=== PATIENT | male | born 1990 | race Caucasian/White ===

== ENCOUNTER 2019-11-30 13:09 | Observation (INO) | payer OTHER ==
[~2019-11-30] VITALS: Ht 182.9 cm; Wt 113.8 kg
--- NOTE | 2019-11-30 20:27 | EKG ---
[facility] [address] [facility] [place] [address] Signed Sinus tachycardia Right atrial enlargement Rightward axis Borderline ECG Multifocal atrial tachycardia No previous ECGs available Confirmed by EVERETT CAMPOVERDE MD ([id number]) on 11/30/2019 8:27:16 PM Electronically Signed By: EVERETT CAMPOVERDE MD 11/30/192026 PATIENT NAME: BOWEN PERSAUD IMELDA Electrocardiogram DATE OF : 86 PHYSICIAN: EVERETT CAMPOVERDE MD REPORT #: [id number] REPORT IS CONFIDENTIAL AND NOT TO BE RELEASED WITHOUT AUTHORIZATION
--- NOTE | 2019-12-02 10:56 | EKG ---
[facility] [address] [facility] [place], [place] [address] Signed Sinus rhythm with marked sinus arrhythmia Possible Left atrial enlargement T wave abnormality, consider anterior ischemia Prolonged QT Abnormal ECG No previous ECGs available Confirmed by DANY MURRAY MD ([id number]) on 12/02/2019 10:56:39 AM Electronically Signed By: DANY MURRAY MD 12/02/19 1056 PATIENT NAME: CORIBOWEN Electrocardiogram DATE OF : 86 PHYSICIAN: DANY MURRAY MD REPORT #: [id number] REPORT IS CONFIDENTIAL AND NOT TO BE RELEASED WITHOUT AUTHORIZATION
--- NOTE | 2019-12-02 10:57 | EKG ---
[facility] [address] [facility] [place] [address] Signed Normal sinus rhythm Rightward axis Nonspecific ST and T wave abnormality Abnormal ECG Confirmed by DANY MURRAY MD ([id number]) on 12/02/2019 10:57:24 AM Electronically Signed By: DANY MURRAY MD 12/02/19 1057 PATIENT NAME: BOWEN PERSAUD Electrocardiogram DATE OF : [birth year] PHYSICIAN: DANY MURRAY MD REPORT #: [id number] REPORT IS CONFIDENTIAL AND NOT TO BE RELEASED WITHOUT AUTHORIZATION
[2019-12-02] MEDS ORDERED: CARDIZEM CD120 MG PO (14:49)
[2019-12-02] MEDS ORDERED: FLECAINIDE ACE100 MG PO (14:50)
== END 2019-12-02 16:18 | disposition home or self-care (01) ==
LOC: ED 13:09 → CCU 13:10
PROVIDERS: ADMIT Internal Medicine
DX: I47.1 Supraventricular tachycardia (principal); J45.20 Mild intermittent asthma, uncomplicated
CPT/HCPCS: 36415; 71046; 80048; 80053; 83735; 83880; 84443; 84484; 85025; 85379; 93005; 93010; 93306; 94640; 96361; 96365; 96366; 96374; 96375; 96376; 99285-25; G0378; J0153; J1940; J7030

== ENCOUNTER 2025-03-05 12:24 | Emergency (ER) | payer OTHER ==
[~2025-03-05] VITALS: Ht 182.9 cm; Wt 125.0 kg
[~2025-03-05 12:24] MED LIST: ACETAMINOPHEN500 MG PO; CARDIZEM CD120 MG PO; FLECAINIDE ACE100 MG PO; IBUPROFEN600 MG PO; MONTELUKAST SOD10 MG PO; OXYCODON-ACETA1 EAC2 PO; VENTOLIN HFA18 GM INH
[2025-03-05] MEDS ORDERED: CARTIA XT120 MG PO (12:42)
[2025-03-05] MEDS ORDERED: SODIUM CHLORIDE 0.9% 1,000 ML IV PRN (12:45)
[2025-03-05 12:49] LABS: BASOPHILS 0.9 % (0.2-1.2); EOSINOPHILS 6.4 % (0.8-7.0); LYMPHOCYTES 25.0 % (21.8-53.1); MCH 30.3 PG (25.7-32.2); MCHC 34.6 g/dL (32.3-36.5); MCV 87.6 fL (79.0-92.2); MONOCYTES 6.6 % (5.3-12.2); NEUTROPHILS 60.8 % (34.0-67.9); RBC 5.25 M/uL (4.63-6.08)
[2025-03-05 13:04] LABS: ALT (SGPT) 51.0 U/L (14-59); AST (SGOT) 23.0 U/L (15-37); GLOMERULAR FILTRATION RATE,EST 88.0 mL/min (>60); PROTEIN, TOTAL 7.6 g/dL (6.4-8.2); UREA NITROGEN 12.0 mg/dL (7-18)
[2025-03-05 15:14] VITALS: BP 133/83
--- NOTE | 2025-03-06 10:53 | EKG ---
[facility] [address] [facility] [place] [address] Signed Sinus tachycardia Nonspecific intraventricular conduction delay Borderline ECG When compared with ECG of 02-JUL-2021 09:53, No significant change was found Confirmed by Jhonatan Mcdonald DO ([id number]) on 03/06/2025 10:52:44 AM Electronically Signed By: JHONATAN MCDONALD DO 03/06/25 1053 PATIENT NAME: BOWEN PERSAUD Electrocardiogram DATE OF : 86 PHYSICIAN: JHONATAN MCDONALD DO REPORT #: [id number] REPORT IS CONFIDENTIAL AND NOT TO BE RELEASED WITHOUT AUTHORIZATION
== END 2025-03-05 15:15 | disposition home or self-care (01) ==
LOC: ED 12:24
PROVIDERS: Emergency Medicine
DX: T67.5XXA Heat exhaustion, unspecified, initial encounter (principal); J45.909 Unspecified asthma, uncomplicated; Z79.899 Other long term (current) drug therapy
CPT/HCPCS: 36415; 80053; 85025; 93005; 93010; 99284; J7030